=== PATIENT | female | born 1950 | race Two or more races ===

== ENCOUNTER 2025-03-04 12:29 | Inpatient (IN) | payer OTHER ==
[~2025-03-04] VITALS: Ht 152.4 cm; Wt 68.0 kg
[~2025-03-04 12:29] MED LIST: ACETAMINOOPHEN-1 TAB PO; AMBIEN10 MG PO; CLONAZEPAM1 MG PO; Colace 100MG PO; DOCUSATE SODIU100 MG PO; LOSARTAN-HCTZ1 EACH PO; METHYLPRED4 MG/DOSE- PO; NEURONTIN PO; PERCOCET 5/3251 TAB PO; PROVENTIL S1 ML/5 MG IH
[2025-03-04] MEDS ORDERED: TOPROL XL50 M1 PO (13:26)
[2025-03-04] MEDS ORDERED: MOTRIN IB200 MG PO (13:27)
[2025-03-04] MEDS ORDERED: ZYRTEC10 M3 PO (13:27)
[2025-03-04] MEDS ORDERED: BREO ELLIPTA 21 EACH IH (13:28)
[2025-03-04] MEDS ORDERED: PROVENTIL S2 MG/5 ML PO (13:29)
[2025-03-04 13:37] VITALS: BP 130/80
[2025-03-14] MEDS ORDERED: VANCOMYCIN HCL 1,000 MG VIAL ONE ×3 (06:45→20:27)
[2025-03-14] MEDS ORDERED: CEFAZOLIN SODIUM 1,000 MG VIAL ONE (06:45)
[2025-03-14] MEDS ORDERED: METHYLPREDNISOLONE SOD SUCC 125 MG VIAL ONE (07:30)
[2025-03-14] MEDS ORDERED: METHYLPREDNISOLONE ACETATE 80 MG/ML VIAL ONE (07:30)
[2025-03-14] MEDS ORDERED: HEMOSTATIC MATRIX WITH THROMBIN KIT TOP ONE ×2 (07:31→08:45)
[2025-03-14] MEDS ORDERED: MEDROLPACK PO (07:55)
[2025-03-14] MEDS ORDERED: ACETAMINOPHEN-1 EAC2 PO (07:55)
[2025-03-14] MEDS ORDERED: GABAPENTIN100 M2 PO (07:56)
[2025-03-14] MEDS ORDERED: AMOX-CLAV 875-1 EACH PO (07:56)
[2025-03-14] MEDS ORDERED: NEURONTIN800 MG PO (07:56)
[2025-03-14] MEDS ORDERED: ZOFRAN8 MG PO (07:57)
[2025-03-14] MEDS ORDERED: COLACE100 MG PO (07:57)
[2025-03-14] MEDS ORDERED: PROMETHAZINE HCL 50 MG/ML AMPUL IM PRN (08:00)
[2025-03-14] MEDS ORDERED: ENALAPRILAT DIHYDRATE 1.25 MG/ML VIAL IV PRN (08:00)
[2025-03-14] MEDS ORDERED: 0.9 % SODIUM CHLORIDE 1,000 ML IV SCH (08:00)
[2025-03-14] MEDS ORDERED: MORPHINE SULFATE 4 MG/ML CARTRIDGE IV PRN (08:15)
[2025-03-14] MEDS ORDERED: CEFAZOLIN SODIUM 1,000 MG VIAL IV ONE (08:30)
[2025-03-14] MEDS ORDERED: ISOPROPYL ALCOHOL 30 ML OUNCE TOP ONE (08:30)
[2025-03-14] MEDS ORDERED: VANCOMYCIN HCL 1,000 MG VIAL IR ONE (08:30)
[2025-03-14] MEDS ORDERED: VANCOMYCIN HCL 1,000 MG VIAL IV ONE (08:30)
[2025-03-14] MEDS ORDERED: VANCOMYCIN HCL 1,000 MG VIAL SPEPROC ONE (08:30)
[2025-03-14] MEDS ORDERED: METHYLPREDNISOLONE ACETATE 80 MG/ML VIAL IM ONE (08:45)
[2025-03-14] MEDS ORDERED: METHYLPREDNISOLONE SOD SUCC 125 MG VIAL IV ONE (08:45)
[2025-03-14] MEDS ORDERED: MORPHINE SULFATE 4 MG/ML VIAL IV ONE (10:50)
[2025-03-14 13:46] VITALS: BP 132/75; O2SAT 95
[2025-03-14 14:23] VITALS: O2SAT 83
[2025-03-14 16:00] VITALS: BP 139/88; O2SAT 96
[2025-03-14 17:00] VITALS: O2SAT 87
[2025-03-14] MEDS ORDERED: DOCUSATE SODIUM 100MG CAP PO SCH (17:00)
[2025-03-14] MEDS ORDERED: FAMOtidine 20 MG TABLET PO SCH (17:00)
[2025-03-14] MEDS ORDERED: CEFAZOLIN SODIUM 1,000 MG in 0.9 % SODIUM CHLORIDE 50 ML IV SCH (17:00)
[2025-03-14] MEDS ORDERED: METHYLPREDNISOLONE SOD SUCC 125 MG VIAL IV SCH (17:00)
[2025-03-14] MEDS ORDERED: ALBUTEROL SULFATE 3 ML/2.5 MG AMPUL.NEB IH SCH (17:00)
[2025-03-14] MEDS ORDERED: ACETAMINOPHEN 500 MG GEL..CAP PO SCH (20:00)
[2025-03-14 21:00] VITALS: O2SAT 93
[2025-03-14] MEDS ORDERED: GABAPENTIN 800 MG TABLET PO SCH (21:00)
[2025-03-14] MEDS ORDERED: VANCOMYCIN HCL 1,000 MG VIAL IV SCH (21:00)
[2025-03-15] VITALS (9 sets, daily range): BP systolic 113–146; BP diastolic 56–79; O2SAT 90–96
[2025-03-15] MEDS ORDERED: SODIUM CHLORIDE 0.45 % 1,000 ML IV SCH
[2025-03-15] MEDS ORDERED: VANCOMYCIN HCL 1,000 MG VIAL ONE ×2 (06:40→13:59)
[2025-03-15 07:38] LABS: HEMATOCRIT 30.9 % (34.1-44.9); HEMOGLOBIN 10.2 g/dL (11.2-15.7); LYMPH # 0.57 (1.18-3.74); LYMPH % 6.7 % (19.3-53.1); MEAN CORPUSCULAR HEMOGLOBIN 29.9 pg (25.6-32.2); MONO # 0.19 (0.24-0.82); MONO % 2.2 % (4.7-12.5); NEUT # 7.78 (1.56-6.13); NEUT % 90.9 % (34.0-71.1); PLATELET COUNT 130 K/uL (163-369); RED BLOOD COUNT 3.41 M/uL (3.93-5.22); RED CELL DISTRIBUTION WIDTH 13.2 % (11.6-14.4)
[2025-03-15 08:24] LABS: CALCIUM 8.5 mg/dL (8.5-10.1); CREATININE SERUM 0.72 mg/dL (0.55-1.02); GFR 79.4; POTASSIUM 4.42 mEq/L (3.5-5.1)
[2025-03-15] MEDS ORDERED: LOSARTAN POTASSIUM 100 MG TABLET PO SCH (09:00)
[2025-03-15] MEDS ORDERED: TAMSULOSIN HCL 0.4 MG CAP PO SCH (09:00)
[2025-03-15] MEDS ORDERED: ENOXAPARIN SODIUM 40 MG/0.4 ML SYRINGE SUBCUTANEO SCH (09:00)
[2025-03-15] MEDS ORDERED: LOSARTAN POTAS100 MG PO (11:06)
[2025-03-16 00:19] VITALS: BP 119/64; O2SAT 95
[2025-03-16 08:00] VITALS: BP 143/73; O2SAT 95
== END 2025-03-16 15:23 | DRG 428 ==
LOC: SURG 03-14 07:00 → O/R 03-14 08:22 → SURG 03-14 12:30 → SURH 03-14 13:39
PROVIDERS: ADMIT Orthopaedic Surgery Orthopaedic Surgery of the Spine; ATTEND Orthopaedic Surgery Orthopaedic Surgery of the Spine
PROC: 0SG3071 Fusion of Lumbosacral Joint with Autologous Tissue Substitute, Posterior Approach, Posterior Column, Open Approach (ICD-10-PCS; 2025-03-14)
PROC: 0ST20ZZ Resection of Lumbar Vertebral Disc, Open Approach (ICD-10-PCS; 2025-03-14)
PROC: 0QB30ZZ Excision of Left Pelvic Bone, Open Approach (ICD-10-PCS; 2025-03-14)
PROC: 07DR3ZZ Extraction of Iliac Bone Marrow, Percutaneous Approach (ICD-10-PCS; 2025-03-14)
PROC: 4A1104G Monitoring of Peripheral Nervous Electrical Activity, Intraoperative, Open Approach (ICD-10-PCS; 2025-03-14)
PROC: 4A12X4Z Monitoring of Cardiac Electrical Activity, External Approach (ICD-10-PCS; 2025-03-14)
PROC: XRGC0R7 Fusion of 2 or more Lumbar Vertebral Joints using Custom-Made Anatomically Designed Interbody Fusion Device, Open Approach, New Technology Group 7 (ICD-10-PCS; principal; 2025-03-14 07:00)
DX: M48.062 Spinal stenosis, lumbar region with neurogenic claudication (principal); M41.56 Other secondary scoliosis, lumbar region; I10 Essential (primary) hypertension